=== PATIENT | female | born 1940 | race Caucasian/White ===

== ENCOUNTER → 2019-05-10 | Outpatient (CLI) | payer OTHER ==
[~2019-05-10] MED LIST: Aspirin PO; COQ10 PO; CYCL30DR OP; LEVO75TA10 PO; LOVA20TA3 PO; MULTIVITAMIN PO; OSTEOBIFLEX; PROBIOTIC PO
== END | disposition home or self-care (01) ==
LOC: RAH 09:35
PROVIDERS: ATTEND Family Medicine
DX: Z13.6 Encounter for screening for cardiovascular disorders (principal)
CPT/HCPCS: 75571